=== PATIENT | female | born 1985 | race Caucasian/White ===

== ENCOUNTER 2016-07-10 14:32 | Emergency (ER) | payer MEDICAID ==
[~2016-07-10] VITALS: Ht 157.5 cm; Wt 65.9 kg
[2016-07-10] MEDS ORDERED: MYCO250C7 PO (15:09)
[2016-07-10] MEDS ORDERED: HYDR200T4 PO (15:09)
[2016-07-10] MEDS ORDERED: PRED1 PO (15:09)
[2016-07-10] MEDS ORDERED: DEXAMETHASONE SOD PHOS 4 MG/ML 5 ML VIAL IM ONE (17:00)
[2016-07-10] MEDS ORDERED: ALBUTEROL SULFATE 5 MG/ML 20 ML NEB SOLN [BULK] NEB ONE (17:00)
[2016-07-10] MEDS ORDERED: 0.9% SODIUM CHLORIDE 5 ML NEB SOLUTION NEB ONE (17:27)
[2016-07-10 19:36] VITALS: BP 141/87
== END 2016-07-10 19:39 | disposition home or self-care (01) ==
LOC: EMS 14:34
DX: J40 Bronchitis, not specified as acute or chronic (principal); J98.01 Acute bronchospasm; I10 Essential (primary) hypertension
CPT/HCPCS: 71020; 84703; 94640; 96372; 99285; J1100; J7611

== ENCOUNTER 2016-09-01 11:58 | Emergency (ER) | payer MEDICAID ==
[~2016-09-01] VITALS: Ht 160 cm; Wt 64.0 kg
[~2016-09-01 11:58] MED LIST: HYDR200T4 PO; MYCO250C7 PO; PRED1 PO
[2016-09-01] MEDS ORDERED: SODIUM CHLORIDE 0.9% 1,000 ML IV ONE (13:45)
[2016-09-01] MEDS ORDERED: MORPHINE SULFATE 4 MG/ML SYRINGE IVP ONE ×2 (13:45→16:30)
[2016-09-01] MEDS ORDERED: ONDANSETRON HCL 4 MG/2 ML VIAL IVP ONE (13:45)
[2016-09-01 14:12] LABS: BASOPHILS % (AUTO) 0.3 % (0.0-2.0); EOSINOPHILS % (AUTO) 0.3 % (1.0-6.0); HEMATOCRIT 33.5 % (36-46); LYMPHOCYTES # (AUTO) 2.7 K/uL (1.0-4.8); LYMPHOCYTES % (AUTO) 10.7 % (22.0-44.0); MEAN CORPUSCULAR HEMOGLOBIN 29.1 pg (26.0-34.0); MEAN CORPUSCULAR HGB CONC 32.8 G/dL (31.0-37.0); MEAN CORPUSCULAR VOLUME 89 fL (80-100); MONOCYTES % (AUTO) 4.1 % (2.0-9.0); NEUTROPHILS # (AUTO) 21.4 K/uL (1.8-7.7); NEUTROPHILS % (AUTO) 84.6 % (40.0-70.0); PLATELET COUNT (AUTO) 365 K/uL (150-450); RED BLOOD CELL COUNT(AUTO) 3.78 MIL/uL (4.00-5.20); RED CELL DISTRIBUTION WIDTH 13.9 % (11.5-14.5); WHITE BLOOD COUNT (AUTO) 25.3 K/uL (4.5-11.0)
[2016-09-01 14:17] LABS: ANION GAP 13 mmol/L (8-16); CALCIUM, TOTAL 9.2 mg/dL (8.8-10.5); CARBON DIOXIDE 23 mmol/L (22-29); CHLORIDE 104 mmol/L (98-107); CREATININE 1.97 mg/dL (0.60-1.30); GLOMERULAR FILTR. RATE CALC 30 mL/min (>60); POTASSIUM 3.6 mmol/L (3.5-5.1); SODIUM SERUM 140 mmol/L (136-145); UREA NITROGEN, BLOOD 40 mg/dL (7-18)
[2016-09-01 14:24] LABS: ALANINE AMINOTRANSFERASE 24 U/L (12-78); ALBUMIN 2.9 g/dL (3.4-5.0); ASPARTATE AMINOTRANSFERASE 9 U/L (15-37); BILIRUBIN,TOTAL 0.2 mg/dL (0.1-1.0); CREATINE KINASE, TOTAL 25 U/L (26-192); TOTAL PROTEIN, SERUM 6.5 g/dL (6.4-8.2)
[2016-09-01 14:31] LABS: B-TYPE NATRIURETIC PEPTIDE 139 pg/mL (0-100)
[2016-09-01 14:58] LABS: APPEARANCE,URINE CLEAR (CLEAR); GLUCOSE, URINE (UA) NEGATIVE (NEGATIVE); KETONES,URINE NEGATIVE (NEGATIVE); LEUKOCYTE ESTERASE ,URINE NEGATIVE (NEGATIVE); OCCULT BLOOD,URINE LARGE (NEGATIVE); PROTEIN,URINE SEE CONFIRM (NEGATIVE)
[2016-09-01 15:06] LABS: SULFOSALICYLIC ACID,URINE 4+ (Negative)
[2016-09-01 15:08] LABS: WBC,URINE 0-2 /HPF (0-5)
[2016-09-01 15:09] LABS: FINE GRANULAR CASTS,URINE 0-2 /LPF (None Seen); HYALINE CASTS, URINE 0-2 /LPF (None Seen); SQUAMOUS EPITHELIAL CELL,UR Few /LPF (None Seen)
[2016-09-01] MEDS ORDERED: SODIUM CHLORIDE 0.9% 100 ML ONE (15:12)
[2016-09-01] MEDS ORDERED: IOVERSOL 320 MG/ML 100 ML VIAL ONE (15:12)
[2016-09-01] MEDS ORDERED: ACETAMINOPHEN 1000 MG/ISO-OSM 100 ML IV ONE (16:30)
[2016-09-01] MEDS ORDERED: DONNATAL/LIDOCAINE/MAALOX 55 ML BOTTLE PO ONE (17:00)
[2016-09-01 18:03] VITALS: BP 134/86
== END 2016-09-01 18:25 | disposition home or self-care (01) ==
LOC: EMS 12:00
DX: R09.1 Pleurisy (principal); R07.89 Other chest pain; D72.829 Elevated white blood cell count, unspecified; K21.9 Gastro-esophageal reflux disease without esophagitis; N28.9 Disorder of kidney and ureter, unspecified; L93.0 Discoid lupus erythematosus; I10 Essential (primary) hypertension
CPT/HCPCS: 36415; 71010; 71275; 80053; 81001; 82550; 83880; 84484; 84703; 85025; 85379; 93005; 96361; 96365; 96366; 96375; 96376; 99285; J0131; J2270; J2405; J7030; J7050; Q9967; Z7610

== ENCOUNTER 2016-12-23 14:06 | Emergency (ER) | payer MEDICAID ==
[~2016-12-23] VITALS: Ht 160 cm; Wt 59.1 kg
[~2016-12-23 14:06] MED LIST changes: +ACET1TAB12 PO; +AMLO-511 PO; +BELI400V IV; +HYDR-309 PO; +LOSA25TA21 PO; +OMEP20 PO; +OS500 PO; +VITAD1000 PO
[2016-12-23] MEDS ORDERED: LOSA25TA21 PO (14:13)
[2016-12-23] MEDS ORDERED: PRED20 PO (14:53)
[2016-12-23] MEDS ORDERED: SODIUM CHLORIDE 0.9% 1,000 ML IV ONE (15:00)
[2016-12-23] MEDS ORDERED: OxyCODONE HCL/ACETAMINOPHEN 5-325 MG TABLET PO ONE (15:00)
[2016-12-23 15:42] LABS: APPEARANCE,URINE CLEAR (CLEAR); BASOPHILS % (AUTO) 0.1 % (0.0-2.0); EOSINOPHILS % (AUTO) 0.1 % (1.0-6.0); GLUCOSE, URINE (UA) NEGATIVE (NEGATIVE); HEMOGLOBIN 9.6 g/dL (12.0-16.0); KETONES,URINE NEGATIVE (NEGATIVE); LEUKOCYTE ESTERASE ,URINE NEGATIVE (NEGATIVE); LYMPHOCYTES # (AUTO) 1.2 K/uL (1.0-4.8); LYMPHOCYTES % (AUTO) 4.7 % (22.0-44.0); MEAN CORPUSCULAR VOLUME 88 fL (80-100); MONOCYTES # (AUTO) 0.5 K/uL (0.1-1.0); MONOCYTES % (AUTO) 1.8 % (2.0-9.0); OCCULT BLOOD,URINE MODERATE (NEGATIVE); PLATELET COUNT (AUTO) 331 K/uL (150-450); PROTEIN,URINE SEE CONFIRM (NEGATIVE); RED BLOOD CELL COUNT(AUTO) 3.31 MIL/uL (4.00-5.20); RED CELL DISTRIBUTION WIDTH 15.4 % (11.5-14.5); WHITE BLOOD COUNT (AUTO) 25.7 K/uL (4.5-11.0)
[2016-12-23 15:50] LABS: NEUTROPHILS % (AUTO) 93.3 % (40.0-70.0); SULFOSALICYLIC ACID,URINE 3+ (Negative)
[2016-12-23 15:51] LABS: SQUAMOUS EPITHELIAL CELL,UR Few /LPF (None Seen); WBC,URINE 0-2 /HPF (0-5)
[2016-12-23 15:58] LABS: CALCIUM, TOTAL 8.5 mg/dL (8.8-10.5); CREATININE 1.9 mg/dL (0.60-1.30); POTASSIUM 3.5 mmol/L (3.5-5.1)
[2016-12-23 16:04] LABS: ALBUMIN 3.1 g/dL (3.4-5.0); BILIRUBIN,TOTAL 0.2 mg/dL (0.1-1.0); TOTAL PROTEIN, SERUM 6.3 g/dL (6.4-8.2)
[2016-12-23 16:09] LABS: LACTIC ACID 0.3 mmol/L (0.4-2.0)
[2016-12-23] MEDS ORDERED: ALBUTEROL SULFATE 2.5 MG/0.5 ML NEB SOLUTION NEB ONE (16:45)
[2016-12-23] MEDS ORDERED: IPRATROPIUM BROMIDE 0.5 MG/2.5 ML NEB SOLUTION NEB ONE (16:45)
[2016-12-23 17:11] LABS: RBC MORPHOLOGY COMMENT NORMAL RBC MORPH
[2016-12-23 17:12] LABS: ERYTHROCYTE SEDIMENTATION RATE 30 MM/HR (0-20)
[2016-12-23 17:34] VITALS: BP 149/103
== END 2016-12-23 17:50 | disposition home or self-care (01) ==
LOC: EMS 14:08
DX: R07.89 Other chest pain (principal); M62.838 Other muscle spasm; R05 Cough; I10 Essential (primary) hypertension; F12.90 Cannabis use, unspecified, uncomplicated
CPT/HCPCS: 36415; 71020; 80053; 81001; 81025; 83605; 84484; 85025; 85651; 86140; 94640; 96360; 96361; 99285; J7030; J7613

== ENCOUNTER 2016-12-30 01:39 | Emergency (ER) | payer MEDICAID ==
[~2016-12-30] VITALS: Ht 162.6 cm; Wt 59.1 kg
[~2016-12-30 01:39] MED LIST changes: -ACET1TAB12 PO; -HYDR-309 PO; -PRED1 PO; +PRED20 PO
[2016-12-30 02:13] LABS: BASOPHILS % (AUTO) 0.3 % (0.0-2.0); EOSINOPHILS % (AUTO) 0.1 % (1.0-6.0); LYMPHOCYTES # (AUTO) 2.3 K/uL (1.0-4.8); LYMPHOCYTES % (AUTO) 10.4 % (22.0-44.0); MEAN CORPUSCULAR HEMOGLOBIN 29.3 pg (26.0-34.0); MEAN CORPUSCULAR HGB CONC 33.4 G/dL (31.0-37.0); MEAN CORPUSCULAR VOLUME 88 fL (80-100); MONOCYTES # (AUTO) 0.5 K/uL (0.1-1.0); MONOCYTES % (AUTO) 2.2 % (2.0-9.0); NEUTROPHILS # (AUTO) 19.3 K/uL (1.8-7.7); PLATELET COUNT (AUTO) 373 K/uL (150-450); RED BLOOD CELL COUNT(AUTO) 3.41 MIL/uL (4.00-5.20); RED CELL DISTRIBUTION WIDTH 15.4 % (11.5-14.5); WHITE BLOOD COUNT (AUTO) 22.2 K/uL (4.5-11.0)
[2016-12-30] MEDS ORDERED: SODIUM CHLORIDE 0.9% 1,000 ML IV ONE (02:15)
[2016-12-30] MEDS ORDERED: MORPHINE SULFATE 4 MG/ML SYRINGE IVP ONE (02:15)
[2016-12-30] MEDS ORDERED: SODIUM CHLORIDE 0.9% 500 ML IV ONE ×2 (02:15→04:30)
[2016-12-30] MEDS ORDERED: ONDANSETRON HCL 4 MG/2 ML VIAL IVP ONE (02:15)
[2016-12-30 02:22] LABS: CALCIUM, TOTAL 8.5 mg/dL (8.8-10.5); CREATININE 2.27 mg/dL (0.60-1.30); POTASSIUM 3.9 mmol/L (3.5-5.1)
[2016-12-30 02:29] LABS: BILIRUBIN,TOTAL 0.1 mg/dL (0.1-1.0)
[2016-12-30] MEDS ORDERED: IPRATROPIUM BROMIDE 0.5 MG/2.5 ML NEB SOLUTION NEB ONE (02:45)
[2016-12-30] MEDS ORDERED: ALBUTEROL SULFATE 5 MG/ML 20 ML NEB SOLN [BULK] NEB ONE (02:45)
[2016-12-30] MEDS ORDERED: 0.9% SODIUM CHLORIDE 5 ML NEB SOLUTION NEB ONE (03:18)
[2016-12-30 03:41] LABS: INFLUENZA TYPE B NEGATIVE FOR TYPE B (NEGATIVE)
[2016-12-30] MEDS ORDERED: HYDROmorphone 2 MG/ML SYRINGE IVP ONE (04:00)
[2016-12-30 05:09] VITALS: BP 135/70
[2016-12-30] MEDS ORDERED: ACETAMINOPHEN 500 MG TABLET PO ONE (05:15)
[2016-12-30] MEDS ORDERED: LEVOFLOXACIN 250 MG TABLET PO ONE (05:15)
== END 2016-12-30 05:47 | disposition home or self-care (01) ==
LOC: EMS 01:39
DX: J18.9 Pneumonia, unspecified organism (principal); J02.9 Acute pharyngitis, unspecified; I10 Essential (primary) hypertension; F12.90 Cannabis use, unspecified, uncomplicated
CPT/HCPCS: 36415; 71010; 80053; 80307; 81025; 83690; 85025; 87804; 94640; 96361; 96374; 96375; 99285; J1170; J2270; J2405; J7030; J7611

== ENCOUNTER 2017-01-03 20:23 | Emergency (ER) | payer MEDICAID ==
[~2017-01-03] VITALS: Ht 160 cm; Wt 59.0 kg
[2017-01-03 22:20] LABS: APPEARANCE,URINE CLEAR (CLEAR); GLUCOSE, URINE (UA) NEGATIVE (NEGATIVE); KETONES,URINE NEGATIVE (NEGATIVE); LEUKOCYTE ESTERASE ,URINE NEGATIVE (NEGATIVE); OCCULT BLOOD,URINE LARGE (NEGATIVE); PH,URINE 5.5 (5.0-8.0); PROTEIN,URINE SEE CONFIRM (NEGATIVE)
[2017-01-03 22:20] LABS: BASOPHILS % (AUTO) 0.2 % (0.0-2.0); EOSINOPHILS % (AUTO) 0.1 % (1.0-6.0); HEMATOCRIT 29.2 % (36-46); HEMOGLOBIN 9.7 g/dL (12.0-16.0); LYMPHOCYTES # (AUTO) 1.2 K/uL (1.0-4.8); LYMPHOCYTES % (AUTO) 10.6 % (22.0-44.0); MEAN CORPUSCULAR HEMOGLOBIN 29.1 pg (26.0-34.0); MEAN CORPUSCULAR HGB CONC 33.2 G/dL (31.0-37.0); MEAN CORPUSCULAR VOLUME 88 fL (80-100); MONOCYTES # (AUTO) 0.3 K/uL (0.1-1.0); MONOCYTES % (AUTO) 2.7 % (2.0-9.0); NEUTROPHILS % (AUTO) 86.4 % (40.0-70.0); PLATELET COUNT (AUTO) 388 K/uL (150-450); RED BLOOD CELL COUNT(AUTO) 3.33 MIL/uL (4.00-5.20); RED CELL DISTRIBUTION WIDTH 15.1 % (11.5-14.5); WHITE BLOOD COUNT (AUTO) 11.6 K/uL (4.5-11.0)
[2017-01-03 22:22] LABS: ADD UA MICROSCOPIC YES
[2017-01-03 22:24] LABS: CREATININE 2.21 mg/dL (0.60-1.30); POTASSIUM 4.2 mmol/L (3.5-5.1)
[2017-01-03 22:30] LABS: ALBUMIN 2.8 g/dL (3.4-5.0); BILIRUBIN,TOTAL 0.2 mg/dL (0.1-1.0); TOTAL PROTEIN, SERUM 6.6 g/dL (6.4-8.2)
[2017-01-03 22:31] LABS: SULFOSALICYLIC ACID,URINE 2+ (Negative)
[2017-01-03 22:33] LABS: SQUAMOUS EPITHELIAL CELL,UR Rare /LPF (None Seen)
[2017-01-03 22:44] LABS: RBC MORPHOLOGY COMMENT NORMAL RBC MORPH
[2017-01-03] MEDS ORDERED: SODIUM CHLORIDE 0.9% 1,000 ML IV ONE (23:15)
[2017-01-03] MEDS ORDERED: KETOROLAC TROMETHAMINE 30 MG/ML VIAL IVP ONE (23:45)
[2017-01-03] MEDS ORDERED: HYDROCODONE/ACETAMINOPHEN 5-325 MG TABLET PO ONE (23:45)
[2017-01-04 00:38] VITALS: BP 122/78
== END 2017-01-04 00:43 | disposition home or self-care (01) ==
LOC: EMS 20:24
DX: R10.13 Epigastric pain (principal); I10 Essential (primary) hypertension
CPT/HCPCS: 36415; 80053; 81001; 83690; 84703; 85025; 96361; 96374; 99284; J1885; J7030

== ENCOUNTER 2017-01-07 20:34 | Inpatient (IN) | payer MEDICAID ==
[~2017-01-07] VITALS: Ht 160 cm; Wt 59.6 kg
[2017-01-07] MEDS ORDERED: PERCT10 PO (20:41)
[2017-01-07] MEDS ORDERED: KETOROLAC TROMETHAMINE 30 MG/ML VIAL IVP ONE (21:15)
[2017-01-07] MEDS ORDERED: SODIUM CHLORIDE 0.9% 1,000 ML IV ONE ×2 (21:15→21:30)
[2017-01-07] MEDS ORDERED: ACETAMINOPHEN 1000 MG/ISO-OSM 100 ML IV ONE (21:15)
[2017-01-07 21:28] LABS: EOSINOPHILS % (AUTO) 0.1 % (1.0-6.0); HEMATOCRIT 29.3 % (36-46); HEMOGLOBIN 9.6 g/dL (12.0-16.0); LYMPHOCYTES # (AUTO) 0.6 K/uL (1.0-4.8); LYMPHOCYTES % (AUTO) 2.2 % (22.0-44.0); MEAN CORPUSCULAR HEMOGLOBIN 28.7 pg (26.0-34.0); MEAN CORPUSCULAR HGB CONC 32.9 G/dL (31.0-37.0); MEAN CORPUSCULAR VOLUME 87 fL (80-100); MONOCYTES # (AUTO) 0.3 K/uL (0.1-1.0); MONOCYTES % (AUTO) 1.1 % (2.0-9.0); NEUTROPHILS # (AUTO) 25.5 K/uL (1.8-7.7); NEUTROPHILS % (AUTO) 96.6 % (40.0-70.0); PLATELET COUNT (AUTO) 281 K/uL (150-450); RED BLOOD CELL COUNT(AUTO) 3.36 MIL/uL (4.00-5.20); RED CELL DISTRIBUTION WIDTH 14.8 % (11.5-14.5); WHITE BLOOD COUNT (AUTO) 26.4 K/uL (4.5-11.0)
[2017-01-07 21:39] LABS: CALCIUM, TOTAL 8.5 mg/dL (8.8-10.5); CREATININE 2.11 mg/dL (0.60-1.30); POTASSIUM 3.5 mmol/L (3.5-5.1)
[2017-01-07 21:45] LABS: BILIRUBIN,TOTAL 0.4 mg/dL (0.1-1.0); TOTAL PROTEIN, SERUM 6.4 g/dL (6.4-8.2)
[2017-01-07 21:48] LABS: LACTIC ACID 0.7 mmol/L (0.4-2.0)
[2017-01-07] MEDS ORDERED: PIPERACILLIN/TAZO 3.375 GM/D5W 50 ML IV ONE (22:00)
[2017-01-07 22:05] LABS: RBC MORPHOLOGY COMMENT ABNORMAL RBC MORPH
[2017-01-07 22:14] LABS: APPEARANCE,URINE CLOUDY (CLEAR); GLUCOSE, URINE (UA) NEGATIVE (NEGATIVE); KETONES,URINE NEGATIVE (NEGATIVE); LEUKOCYTE ESTERASE ,URINE NEGATIVE (NEGATIVE); OCCULT BLOOD,URINE LARGE (NEGATIVE); PH,URINE 5.5 (5.0-8.0); PROTEIN,URINE SEE CONFIRM (NEGATIVE)
[2017-01-07] MEDS ORDERED: ONDANSETRON HCL 4 MG/2 ML VIAL IVP PRN (22:15)
[2017-01-07] MEDS ORDERED: ACETAMINOPHEN 325 MG TABLET PO PRN (22:15)
[2017-01-07 22:30] LABS: SQUAMOUS EPITHELIAL CELL,UR Few /LPF (None Seen); SULFOSALICYLIC ACID,URINE 3+ (Negative)
[2017-01-07 22:31] LABS: RBC,URINE 26-50 /HPF (0-2)
[2017-01-07 22:55] VITALS: BP 132/81
[2017-01-07] MEDS: MORPHINE SULFATE 4 MG/ML SYRINGE IVP PRN (23:56)
[2017-01-08 04:44] VITALS: BP 121/82
[2017-01-08 07:47] VITALS: BP 134/81
[2017-01-08] MEDS: MORPHINE SULFATE 4 MG/ML SYRINGE IVP PRN ×2 (08:14→15:02)
[2017-01-08 11:12] VITALS: BP 117/75
[2017-01-08] MEDS ORDERED: ACETAMINOPHEN 325 MG TABLET PO PRN (13:15)
[2017-01-08] MEDS ORDERED: OxyCODONE HCL/ACETAMINOPHEN 10-325 MG TABLET PO PRN (13:15)
[2017-01-08] MEDS ORDERED: 0.9% SODIUM CHLORIDE 10 ML SYRINGE IVP PRN (13:15)
[2017-01-08] MEDS ORDERED: VANCOMYCIN HCL 1 GM/D5% WATER 200 ML IV ONE (14:00)
[2017-01-08] MEDS ORDERED: PIPERACILLIN/TAZO 3.375 GM/D5W 50 ML IV SCH (14:00)
[2017-01-08 14:03] LABS: CALCIUM, TOTAL 8.2 mg/dL (8.8-10.5); CREATININE 1.89 mg/dL (0.60-1.30)
[2017-01-08] MEDS: HYDROXYCHLOROQUINE SULFATE 200 MG TABLET PO SCH ×2 (14:42→20:28)
[2017-01-08] MEDS: MYCOPHENOLATE MOFETIL 250 MG CAPSULE PO SCH ×2 (14:42→20:28)
[2017-01-08] MEDS: AmLODIPine BESYLATE 5 MG TABLET PO SCH (14:43)
[2017-01-08] MEDS: OMEPRAZOLE 20 MG CAPSULE PO SCH (14:43)
[2017-01-08] MEDS: CHOLECALCIFEROL (VIT D3) 1,000 UNITS TABLET PO SCH (14:43)
[2017-01-08] MEDS: LOSARTAN POTASSIUM 25 MG TABLET PO SCH (14:44)
[2017-01-08] MEDS: CALCIUM OYSTER SHELL 500 MG TABLET PO SCH (14:44)
[2017-01-08] MEDS: PIPERACILLIN SODIUM/TAZOBACTAM 2.25 GM in DEXTROSE 5%-WATER 50 ML IV SCH ×2 (14:52→20:27)
[2017-01-08] MEDS ORDERED: VANCOMYCIN HCL 1.25 GM in DEXTROSE 5%-WATER 250 ML IV ONE (15:00)
[2017-01-08] MEDS ORDERED: SODIUM CHLORIDE 0.9% 1,000 ML IV ONE (15:46)
[2017-01-08 16:09] VITALS: BP 133/94
[2017-01-08 19:45] VITALS: BP 138/85
[2017-01-08] MEDS: MORPHINE SULFATE 2 MG/ML SYRINGE IVP PRN (19:50)
[2017-01-08] MEDS ORDERED: MethylPREDNISolone SOD SUCC 125 MG/2 ML VIAL IVP ONE (20:15)
[2017-01-08] MEDS ORDERED: PredniSONE 20 MG TABLET PO SCH (21:00)
[2017-01-08] MEDS: MethylPREDNISolone SOD SUCC 40 MG/ML VIAL IVP SCH (23:50)
[2017-01-08 23:58] VITALS: BP 117/60
[2017-01-09 05:21] VITALS: BP 100/49
[2017-01-09 06:27] LABS: CALCIUM, TOTAL 8.4 mg/dL (8.8-10.5); CREATININE 2.04 mg/dL (0.60-1.30); POTASSIUM 4.9 mmol/L (3.5-5.1)
[2017-01-09 07:45] LABS: BASOPHILS # (AUTO) 0.01 K/uL (0.00-0.20); EOSINOPHILS # (AUTO) 0.01 K/uL (0.00-0.70); EOSINOPHILS % (AUTO) 0.04 % (1.0-6.0); HEMATOCRIT 24.5 % (36-46); HEMOGLOBIN 8.1 g/dL (12.0-16.0); LYMPHOCYTES # (AUTO) 0.4 K/uL (1.0-4.8); LYMPHOCYTES % (AUTO) 1.9 % (22.0-44.0); MEAN CORPUSCULAR HEMOGLOBIN 28.9 pg (26.0-34.0); MEAN CORPUSCULAR HGB CONC 33.2 G/dL (31.0-37.0); MEAN CORPUSCULAR VOLUME 87 fL (80-100); MONOCYTES % (AUTO) 0.1 % (2.0-9.0); NEUTROPHILS # (AUTO) 20.9 K/uL (1.8-7.7); PLATELET COUNT (AUTO) 252 K/uL (150-450); RED BLOOD CELL COUNT(AUTO) 2.82 MIL/uL (4.00-5.20); RED CELL DISTRIBUTION WIDTH 15.9 % (11.5-14.5); WHITE BLOOD COUNT (AUTO) 21.4 K/uL (4.5-11.0)
[2017-01-09 07:47] LABS: NEUTROPHILS % (AUTO) 97.9 % (40.0-70.0)
[2017-01-09 07:49] LABS: PROCALCITONIN (PCT) 0.43 ng/mL (<0.50)
[2017-01-09 07:57] VITALS: BP 112/67
[2017-01-09] MEDS ORDERED: VANCOMYCIN HCL 1 GM/D5% WATER 200 ML IV SCH (08:00)
[2017-01-09] MEDS ORDERED: VANCOMYCIN HCL 1.25 GM in DEXTROSE 5%-WATER 250 ML IV SCH (08:00)
[2017-01-09] MEDS: MethylPREDNISolone SOD SUCC 40 MG/ML VIAL IVP SCH ×3 (08:33→23:23)
[2017-01-09] MEDS: MORPHINE SULFATE 2 MG/ML SYRINGE IVP PRN (08:33)
[2017-01-09] MEDS: HYDROXYCHLOROQUINE SULFATE 200 MG TABLET PO SCH ×2 (08:34→20:33)
[2017-01-09] MEDS: LOSARTAN POTASSIUM 25 MG TABLET PO SCH (08:34)
[2017-01-09] MEDS: CALCIUM OYSTER SHELL 500 MG TABLET PO SCH (08:34)
[2017-01-09] MEDS: AmLODIPine BESYLATE 5 MG TABLET PO SCH (08:34)
[2017-01-09] MEDS: OMEPRAZOLE 20 MG CAPSULE PO SCH (08:34)
[2017-01-09] MEDS: MYCOPHENOLATE MOFETIL 250 MG CAPSULE PO SCH ×2 (08:34→20:33)
[2017-01-09] MEDS: CHOLECALCIFEROL (VIT D3) 1,000 UNITS TABLET PO SCH (08:36)
[2017-01-09 09:47] LABS: ERYTHROCYTE SEDIMENTATION RATE 87 MM/HR (0-20)
[2017-01-09] MEDS ORDERED: EPOETIN ALFA 10,000 UNITS/ML VIAL SQ ONE (12:00)
[2017-01-09 12:12] VITALS: BP 117/71
[2017-01-09] MEDS ORDERED: INFLUENZA VIRUS VACCINE QVS 2017-18 (3YR+)/PF 60 MCG/0.5 ML SYRINGE IM ONE (14:45)
[2017-01-09 16:40] VITALS: BP 119/72
[2017-01-09 19:49] VITALS: BP 118/55
[2017-01-09 23:51] VITALS: BP 135/80
[2017-01-10 04:26] VITALS: BP 106/59
[2017-01-10 05:27] LABS: INFLUENZA TYPE B NEGATIVE FOR TYPE B (NEGATIVE)
[2017-01-10 07:46] LABS: CALCIUM, TOTAL 8.9 mg/dL (8.8-10.5); CREATININE 1.78 mg/dL (0.60-1.30)
[2017-01-10 07:52] VITALS: BP 129/66
[2017-01-10] MEDS: MYCOPHENOLATE MOFETIL 250 MG CAPSULE PO SCH (09:10)
[2017-01-10] MEDS: HYDROXYCHLOROQUINE SULFATE 200 MG TABLET PO SCH (09:11)
[2017-01-10] MEDS: CHOLECALCIFEROL (VIT D3) 1,000 UNITS TABLET PO SCH (09:11)
[2017-01-10] MEDS: LOSARTAN POTASSIUM 25 MG TABLET PO SCH (09:11)
[2017-01-10] MEDS: OMEPRAZOLE 20 MG CAPSULE PO SCH (09:11)
[2017-01-10] MEDS: CALCIUM OYSTER SHELL 500 MG TABLET PO SCH (09:11)
[2017-01-10] MEDS: MethylPREDNISolone SOD SUCC 40 MG/ML VIAL IVP SCH (09:13)
[2017-01-10] MEDS: MORPHINE SULFATE 4 MG/ML SYRINGE IVP PRN (09:13)
[2017-01-10 11:12] VITALS: BP 142/92
[2017-01-11] MEDS ORDERED: AmLODIPine BESYLATE 2.5 MG TABLET PO SCH (09:00)
[2017-02-05] MEDS ORDERED: BELIMUMAB IV SCH (09:00)
== END 2017-01-10 15:34 | disposition home or self-care (01) | DRG 346 ==
LOC: EMS 20:35 → UNDOADMIN 22:22 → 6N 22:22
PROVIDERS: ADMIT Family Medicine; ATTEND Family Medicine
DX: M32.9 Systemic lupus erythematosus, unspecified (principal); N17.9 Acute kidney failure, unspecified; R65.10 Systemic inflammatory response syndrome (SIRS) of non-infectious origin without acute organ dysfunction; N18.3 Chronic kidney disease, stage 3 (moderate); I12.9 Hypertensive chronic kidney disease with stage 1 through stage 4 chronic kidney disease, or unspecified chronic kidney disease; D64.9 Anemia, unspecified; E78.5 Hyperlipidemia, unspecified; G89.4 Chronic pain syndrome; M19.90 Unspecified osteoarthritis, unspecified site; T38.0X5A Adverse effect of glucocorticoids and synthetic analogues, initial encounter; Z82.61 Family history of arthritis; Z87.891 Personal history of nicotine dependence; Z91.19 Patient's noncompliance with other medical treatment and regimen; Z28.21 Immunization not carried out because of patient refusal
CPT/HCPCS: 51701; 82570; 83605; 83735; 84145; 84156; 85651; 87040; 87804; 96361; 96365; 96375; 99285; J0131; J0885; J2270; J2543; J2920; J2930; J3370; J7030; J7060; J7517

== ENCOUNTER 2017-04-06 13:29 | Emergency (ER) | payer MEDICAID ==
[~2017-04-06] VITALS: Ht 160 cm; Wt 61.4 kg
[~2017-04-06 13:29] MED LIST changes: +PERCT10 PO
[2017-04-06] MEDS ORDERED: ONDANSETRON HCL 4 MG/2 ML VIAL IVP ONE (15:00)
[2017-04-06] MEDS ORDERED: MORPHINE SULFATE 4 MG/ML SYRINGE IVP ONE (15:00)
[2017-04-06 15:08] LABS: BASOPHILS % (AUTO) 0.3 % (0.0-2.0); EOSINOPHILS % (AUTO) 0.5 % (1.0-6.0); HEMATOCRIT 33.7 % (36-46); HEMOGLOBIN 11.4 g/dL (12.0-16.0); LYMPHOCYTES # (AUTO) 1.7 K/uL (1.0-4.8); LYMPHOCYTES % (AUTO) 11.6 % (22.0-44.0); MEAN CORPUSCULAR HEMOGLOBIN 29.8 pg (26.0-34.0); MEAN CORPUSCULAR HGB CONC 33.7 G/dL (31.0-37.0); MEAN CORPUSCULAR VOLUME 88 fL (80-100); MONOCYTES # (AUTO) 0.8 K/uL (0.1-1.0); MONOCYTES % (AUTO) 5.7 % (2.0-9.0); NEUTROPHILS % (AUTO) 81.9 % (40.0-70.0); PLATELET COUNT (AUTO) 287 K/uL (150-450); RED BLOOD CELL COUNT(AUTO) 3.82 MIL/uL (4.00-5.20); RED CELL DISTRIBUTION WIDTH 13.9 % (11.5-14.5)
[2017-04-06 15:21] LABS: ANION GAP 8 mmol/L (8-16); CALCIUM, TOTAL 8.8 mg/dL (8.8-10.5); CARBON DIOXIDE 26 mmol/L (22-29); CHLORIDE 104 mmol/L (98-107); CREATININE 1.95 mg/dL (0.60-1.30); GLOMERULAR FILTR. RATE CALC 30 mL/min (>60); GLUCOSE,RANDOM 99 mg/dL (70-110); POTASSIUM 3.8 mmol/L (3.5-5.1); SODIUM SERUM 138 mmol/L (136-145); UREA NITROGEN, BLOOD 24 mg/dL (7-18)
[2017-04-06 15:28] LABS: ALANINE AMINOTRANSFERASE 14 U/L (12-78); ALBUMIN 3.2 g/dL (3.4-5.0); ALKALINE PHOSPHATASE 70 U/L (46-116); ASPARTATE AMINOTRANSFERASE 11 U/L (15-37); BILIRUBIN,TOTAL 0.3 mg/dL (0.1-1.0); CREATINE KINASE, TOTAL 34 U/L (26-192); LIPASE 144 U/L (73-393); TOTAL PROTEIN, SERUM 6.6 g/dL (6.4-8.2)
[2017-04-06 15:41] LABS: APPEARANCE,URINE CLEAR (CLEAR); BILIRUBIN,URINE NEGATIVE (NEGATIVE); GLUCOSE, URINE (UA) NEGATIVE (NEGATIVE); KETONES,URINE NEGATIVE (NEGATIVE); LEUKOCYTE ESTERASE ,URINE NEGATIVE (NEGATIVE); NITRATE,URINE NEGATIVE (NEGATIVE); PH,URINE 5.5 (5.0-8.0); PROTEIN,URINE SEE CONFIRM (NEGATIVE); UROBILINOGEN,URINE 0.2 mg/dL (<=1.0)
[2017-04-06 16:01] LABS: BACTERIA,URINE None Seen /HPF (None Seen); OCCULT BLOOD,URINE MODERATE (NEGATIVE); SULFOSALICYLIC ACID,URINE 2+ (Negative); WBC,URINE None Seen /HPF (0-5)
[2017-04-06 16:02] LABS: SQUAMOUS EPITHELIAL CELL,UR Moderate /LPF (None Seen)
[2017-04-06 17:12] VITALS: BP 158/98
== END 2017-04-06 17:29 | disposition home or self-care (01) ==
LOC: EMS 13:30
DX: R07.89 Other chest pain (principal); I10 Essential (primary) hypertension
CPT/HCPCS: 36415; 71045; 76705; 80053; 81001; 81025; 82550; 83690; 85025; 96374; 96375; 99285; J2270; J2405

== ENCOUNTER → 2017-06-26 | Emergency (ER) | payer MEDICAID ==
[~2017-06-26] VITALS: Ht 160 cm; Wt 59.0 kg
[~2017-06-26] MED LIST changes: +DiphenhydrAMINE HCL 50 MG/ML VIAL IVP ONE; +KETOROLAC TROMETHAMINE 30 MG/ML VIAL IVP ONE; +METOCLOPRAMIDE HCL 5 MG/ML 2 ML VIAL IVP ONE; +SODIUM CHLORIDE 0.9% 1,000 ML IV ONE
[2017-06-26 14:30] VITALS: BP 150/111
== END | disposition home or self-care (01) ==
LOC: EMS 11:35
DX: R51 Headache (principal); F12.10 Cannabis abuse, uncomplicated; R11.0 Nausea; I10 Essential (primary) hypertension; K21.9 Gastro-esophageal reflux disease without esophagitis
CPT/HCPCS: 70450; 81002; 81025; 96374; 96375; 99284; J1200; J1885; J2765; J7030

== ENCOUNTER 2017-07-30 13:54 | Emergency (ER) | payer MEDICAID ==
[~2017-07-30] VITALS: Ht 152.4 cm; Wt 59.1 kg
[~2017-07-30 13:54] MED LIST changes: -DiphenhydrAMINE HCL 50 MG/ML VIAL IVP ONE; -KETOROLAC TROMETHAMINE 30 MG/ML VIAL IVP ONE; -METOCLOPRAMIDE HCL 5 MG/ML 2 ML VIAL IVP ONE; -PRED20 PO; -SODIUM CHLORIDE 0.9% 1,000 ML IV ONE
[2017-07-30] MEDS ORDERED: LOPERAMIDE HCL 2 MG CAPSULE PO ONE (14:45)
[2017-07-30] MEDS ORDERED: ONDANSETRON HCL 4 MG/2 ML VIAL IVP ONE (14:45)
[2017-07-30] MEDS ORDERED: SODIUM CHLORIDE 0.9% 1,000 ML IV ONE ×2 (14:45→17:00)
[2017-07-30] MEDS ORDERED: ACETAMINOPHEN 1000 MG/ISO-OSM 100 ML IV ONE (14:45)
[2017-07-30 15:15] LABS: BASOPHILS % (AUTO) 0.5 % (0.0-2.0); EOSINOPHILS % (AUTO) 0 % (1.0-6.0); HEMATOCRIT 35.3 % (36-46); HEMOGLOBIN 11.7 g/dL (12.0-16.0); LYMPHOCYTES # (AUTO) 0.6 K/uL (1.0-4.8); LYMPHOCYTES % (AUTO) 3.2 % (22.0-44.0); MEAN CORPUSCULAR HEMOGLOBIN 28.9 pg (26.0-34.0); MEAN CORPUSCULAR HGB CONC 33.1 G/dL (31.0-37.0); MEAN CORPUSCULAR VOLUME 87 fL (80-100); MONOCYTES # (AUTO) 0.1 K/uL (0.1-1.0); MONOCYTES % (AUTO) 0.5 % (2.0-9.0); PLATELET COUNT (AUTO) 366 K/uL (150-450); RED BLOOD CELL COUNT(AUTO) 4.05 MIL/uL (4.00-5.20); RED CELL DISTRIBUTION WIDTH 13.7 % (11.5-14.5)
[2017-07-30 15:29] LABS: CALCIUM, TOTAL 9.5 mg/dL (8.8-10.5); CREATININE 2.29 mg/dL (0.60-1.30); NEUTROPHILS % (AUTO) 95.8 % (40.0-70.0); POTASSIUM 4.2 mmol/L (3.5-5.1)
[2017-07-30 15:37] LABS: ALBUMIN 3.1 g/dL (3.4-5.0); BILIRUBIN,TOTAL 0.2 mg/dL (0.1-1.0); TOTAL PROTEIN, SERUM 7.8 g/dL (6.4-8.2)
[2017-07-30 15:55] LABS: APPEARANCE,URINE CLEAR (CLEAR); BILIRUBIN,URINE NEGATIVE (NEGATIVE); GLUCOSE, URINE (UA) NEGATIVE (NEGATIVE); KETONES,URINE NEGATIVE (NEGATIVE); LEUKOCYTE ESTERASE ,URINE NEGATIVE (NEGATIVE); NITRATE,URINE NEGATIVE (NEGATIVE); OCCULT BLOOD,URINE LARGE (NEGATIVE); PH,URINE 5.5 (5.0-8.0); PROTEIN,URINE SEE CONFIRM (NEGATIVE); UROBILINOGEN,URINE 0.2 mg/dL (<=1.0)
[2017-07-30 16:26] LABS: SULFOSALICYLIC ACID,URINE 2+ (Negative)
[2017-07-30 16:27] LABS: BACTERIA,URINE Few /HPF (None Seen); SQUAMOUS EPITHELIAL CELL,UR Few /LPF (None Seen); WBC,URINE 0-2 /HPF (0-5)
[2017-07-30] MEDS ORDERED: TraMADol HCL 50 MG TABLET PO ONE (17:00)
[2017-07-30 17:38] VITALS: BP 150/99
== END 2017-07-30 19:07 | disposition home or self-care (01) ==
LOC: EMS 13:55
DX: E86.0 Dehydration (principal); D72.829 Elevated white blood cell count, unspecified; N28.9 Disorder of kidney and ureter, unspecified; M25.50 Pain in unspecified joint; K21.9 Gastro-esophageal reflux disease without esophagitis; I10 Essential (primary) hypertension; F12.90 Cannabis use, unspecified, uncomplicated
CPT/HCPCS: 36415; 80053; 81001; 84703; 85025; 96361; 96365; 96375; 99285; J0131; J2405; J7030

== ENCOUNTER 2018-03-29 18:45 | Emergency (ER) | payer MEDICAID ==
[~2018-03-29] VITALS: Ht 160 cm; Wt 58.0 kg
[~2018-03-29 18:45] MED LIST changes: -LOSA25TA21 PO; +LOSA25TA41 PO
[2018-03-29 20:31] LABS: BASOPHILS % (AUTO) 0.5 % (0.0-2.0); EOSINOPHILS % (AUTO) 1.3 % (1.0-6.0); HEMATOCRIT 32.1 % (36-46); HEMOGLOBIN 10.4 g/dL (12.0-16.0); LYMPHOCYTES # (AUTO) 2.7 K/uL (1.0-4.8); LYMPHOCYTES % (AUTO) 20.8 % (22.0-44.0); MEAN CORPUSCULAR HEMOGLOBIN 27.9 pg (26.0-34.0); MEAN CORPUSCULAR HGB CONC 32.5 G/dL (31.0-37.0); MEAN CORPUSCULAR VOLUME 86 fL (80-100); MONOCYTES # (AUTO) 0.7 K/uL (0.1-1.0); MONOCYTES % (AUTO) 5.4 % (2.0-9.0); NEUTROPHILS # (AUTO) 9.5 K/uL (1.8-7.7); PLATELET COUNT (AUTO) 380 K/uL (150-450); RED BLOOD CELL COUNT(AUTO) 3.75 MIL/uL (4.00-5.20); RED CELL DISTRIBUTION WIDTH 15.5 % (11.5-14.5)
[2018-03-29 20:35] LABS: APPEARANCE,URINE CLEAR (CLEAR); BILIRUBIN,URINE NEGATIVE (NEGATIVE); GLUCOSE, URINE (UA) NEGATIVE (NEGATIVE); KETONES,URINE NEGATIVE (NEGATIVE); LEUKOCYTE ESTERASE ,URINE NEGATIVE (NEGATIVE); NITRATE,URINE NEGATIVE (NEGATIVE); OCCULT BLOOD,URINE MODERATE (NEGATIVE); PH,URINE 5.5 (5.0-8.0); PROTEIN,URINE SEE CONFIRM (NEGATIVE); UROBILINOGEN,URINE 0.2 mg/dL (<=1.0)
[2018-03-29 20:42] LABS: ANION GAP 7 mmol/L (8-16); CALCIUM, TOTAL 7.9 mg/dL (8.8-10.5); CARBON DIOXIDE 26 mmol/L (22-29); CHLORIDE 107 mmol/L (98-107); CREATININE 2.95 mg/dL (0.60-1.30); GLOMERULAR FILTR. RATE CALC 19 mL/min (>60); GLUCOSE,RANDOM 84 mg/dL (70-110); POTASSIUM 4.5 mmol/L (3.5-5.1); SODIUM SERUM 140 mmol/L (136-145); UREA NITROGEN, BLOOD 46 mg/dL (7-18)
[2018-03-29 20:55] LABS: SULFOSALICYLIC ACID,URINE 3+ (Negative)
[2018-03-29 20:56] LABS: BACTERIA,URINE None Seen /HPF (None Seen); WBC,URINE 0-2 /HPF (0-5)
[2018-03-29 20:58] LABS: ALANINE AMINOTRANSFERASE 17 U/L (12-78); ALBUMIN 2.9 g/dL (3.4-5.0); ALKALINE PHOSPHATASE 67 U/L (46-116); ASPARTATE AMINOTRANSFERASE 10 U/L (15-37); BILIRUBIN,TOTAL 0.1 mg/dL (0.1-1.0); HCG,QUANTITATIVE < 1 mIU/mL (0-6); TOTAL PROTEIN, SERUM 6.2 g/dL (6.4-8.2)
[2018-03-29 21:26] LABS: SQUAMOUS EPITHELIAL CELL,UR Few /LPF (None Seen)
[2018-03-29] MEDS ORDERED: ALBUTEROL SULFATE HFA 90 MCG/PUFF 8 GM INHALER IH ONE (21:45)
[2018-03-29 22:48] LABS: INFLUENZA TYPE A NEGATIVE FOR TYPE A (NEGATIVE); INFLUENZA TYPE B NEGATIVE FOR TYPE B (NEGATIVE)
[2018-03-29 23:03] VITALS: BP 145/103
== END 2018-03-29 23:12 | disposition home or self-care (01) ==
LOC: EMS 18:46
DX: I10 Essential (primary) hypertension (principal); J06.9 Acute upper respiratory infection, unspecified; J34.89 Other specified disorders of nose and nasal sinuses; M32.9 Systemic lupus erythematosus, unspecified; R05 Cough; K21.9 Gastro-esophageal reflux disease without esophagitis; F12.90 Cannabis use, unspecified, uncomplicated
CPT/HCPCS: 87804; 93005; 94640; J3535

== ENCOUNTER 2018-04-10 15:23 | Emergency (ER) | payer MEDICAID ==
[~2018-04-10] VITALS: Ht 157.5 cm; Wt 56.4 kg
[2018-04-10 16:09] LABS: BASOPHILS % (AUTO) 0.3 % (0.0-2.0); HEMATOCRIT 32.9 % (36-46); HEMOGLOBIN 10.7 g/dL (12.0-16.0); LYMPHOCYTES # (AUTO) 0.6 K/uL (1.0-4.8); LYMPHOCYTES % (AUTO) 5.8 % (22.0-44.0); MEAN CORPUSCULAR HEMOGLOBIN 27.4 pg (26.0-34.0); MEAN CORPUSCULAR HGB CONC 32.3 G/dL (31.0-37.0); MEAN CORPUSCULAR VOLUME 85 fL (80-100); MONOCYTES # (AUTO) 0.2 K/uL (0.1-1.0); MONOCYTES % (AUTO) 2.1 % (2.0-9.0); NEUTROPHILS # (AUTO) 10.2 K/uL (1.8-7.7); PLATELET COUNT (AUTO) 320 K/uL (150-450); RED BLOOD CELL COUNT(AUTO) 3.88 MIL/uL (4.00-5.20); RED CELL DISTRIBUTION WIDTH 16.2 % (11.5-14.5)
[2018-04-10 16:11] LABS: NEUTROPHILS % (AUTO) 90.8 % (40.0-70.0)
[2018-04-10 16:32] LABS: ANION GAP 10 mmol/L (8-16); CALCIUM, TOTAL 8.7 mg/dL (8.8-10.5); CARBON DIOXIDE 25 mmol/L (22-29); CHLORIDE 101 mmol/L (98-107); CREATININE 2.82 mg/dL (0.60-1.30); GLOMERULAR FILTR. RATE CALC 20 mL/min (>60); GLUCOSE,RANDOM 103 mg/dL (70-110); POTASSIUM 4.1 mmol/L (3.5-5.1); SODIUM SERUM 136 mmol/L (136-145); UREA NITROGEN, BLOOD 39 mg/dL (7-18)
[2018-04-10 16:38] LABS: ALANINE AMINOTRANSFERASE 17 U/L (12-78); ALBUMIN 3.1 g/dL (3.4-5.0); ALKALINE PHOSPHATASE 95 U/L (46-116); ASPARTATE AMINOTRANSFERASE 19 U/L (15-37); BILIRUBIN,TOTAL 0.3 mg/dL (0.1-1.0); TOTAL PROTEIN, SERUM 6.5 g/dL (6.4-8.2)
[2018-04-10 16:55] LABS: HCG,QUANTITATIVE < 1 mIU/mL (0-6)
[2018-04-10] MEDS ORDERED: MORPHINE SULFATE 4 MG/ML SYRINGE IVP ONE (17:00)
[2018-04-10] MEDS ORDERED: ONDANSETRON HCL 4 MG/2 ML VIAL IVP ONE (17:00)
[2018-04-10] MEDS ORDERED: ONDANSETRON HCL 4 MG/2 ML VIAL IM ONE (18:00)
[2018-04-10] MEDS ORDERED: MORPHINE SULFATE 4 MG/ML SYRINGE IM ONE (18:00)
[2018-04-10 19:09] VITALS: BP 148/111
== END 2018-04-10 19:19 | disposition home or self-care (01) ==
LOC: EMS 16:10
DX: R07.89 Other chest pain (principal); L93.0 Discoid lupus erythematosus; I10 Essential (primary) hypertension; K21.9 Gastro-esophageal reflux disease without esophagitis; F12.90 Cannabis use, unspecified, uncomplicated
CPT/HCPCS: 36415; 71046; 80053; 84484; 84702; 85025; 93005; 96372; 99284; J2270; J2405

== ENCOUNTER 2018-06-27 14:24 | Inpatient (IN) | payer MEDICAID ==
[~2018-06-27] VITALS: Ht 172.7 cm; Wt 54.3 kg
[~2018-06-27 14:24] MED LIST changes: -AMLO-511 PO; +AMLO-512 PO; -BELI400V IV; +DOXY100C PO; +FAMO20 PO; +LABE100T8 PO; -LOSA25TA41 PO; -OS500 PO; -PERCT10 PO; +PRED10 PO; +SODI650T PO; -VITAD1000 PO
[2018-06-27 16:06] LABS: BASOPHILS % (AUTO) 0.2 % (0.0-2.0); EOSINOPHILS % (AUTO) 0.2 % (1.0-6.0); HEMATOCRIT 30.6 % (36-46); HEMOGLOBIN 9.7 g/dL (12.0-16.0); LYMPHOCYTES % (AUTO) 6.6 % (22.0-44.0); MEAN CORPUSCULAR HGB CONC 31.5 G/dL (31.0-37.0); MEAN CORPUSCULAR VOLUME 89 fL (80-100); MONOCYTES # (AUTO) 0.5 K/uL (0.1-1.0); PLATELET COUNT (AUTO) 263 K/uL (150-450); RED BLOOD CELL COUNT(AUTO) 3.45 MIL/uL (4.00-5.20); RED CELL DISTRIBUTION WIDTH 17.1 % (11.5-14.5)
[2018-06-27 16:14] LABS: ANION GAP 14 mmol/L (8-16); CALCIUM, TOTAL 9.1 mg/dL (8.8-10.5); CARBON DIOXIDE 23 mmol/L (22-29); CHLORIDE 98 mmol/L (98-107); CREATININE 4.55 mg/dL (0.60-1.30); GLOMERULAR FILTR. RATE CALC 11 mL/min (>60); GLUCOSE,RANDOM 107 mg/dL (70-110); POTASSIUM 4.9 mmol/L (3.5-5.1); SODIUM SERUM 135 mmol/L (136-145); UREA NITROGEN, BLOOD 54 mg/dL (7-18)
[2018-06-27 16:18] LABS: APPEARANCE,URINE CLEAR (CLEAR); BILIRUBIN,URINE NEGATIVE (NEGATIVE); GLUCOSE, URINE (UA) NEGATIVE (NEGATIVE); KETONES,URINE NEGATIVE (NEGATIVE); LEUKOCYTE ESTERASE ,URINE NEGATIVE (NEGATIVE); NITRATE,URINE NEGATIVE (NEGATIVE); OCCULT BLOOD,URINE TRACE (NEGATIVE); PH,URINE 5.5 (5.0-8.0); PROTEIN,URINE SEE CONFIRM (NEGATIVE); UROBILINOGEN,URINE 0.2 mg/dL (<=1.0)
[2018-06-27 16:20] LABS: ALANINE AMINOTRANSFERASE 18 U/L (12-78); ALBUMIN 3.2 g/dL (3.4-5.0); ALKALINE PHOSPHATASE 119 U/L (46-116); ASPARTATE AMINOTRANSFERASE 8 U/L (15-37); BILIRUBIN,TOTAL 0.3 mg/dL (0.1-1.0); LIPASE 93 U/L (73-393); TOTAL PROTEIN, SERUM 6.8 g/dL (6.4-8.2)
[2018-06-27 16:25] LABS: BACTERIA,URINE None Seen /HPF (None Seen); RBC,URINE 0-2 /HPF (0-2); SQUAMOUS EPITHELIAL CELL,UR Rare /LPF (None Seen); SULFOSALICYLIC ACID,URINE Trace (Negative); WBC,URINE 0-2 /HPF (0-5)
[2018-06-27 16:40] LABS: HCG,QUANTITATIVE < 1 mIU/mL (0-6)
[2018-06-27] MEDS ORDERED: MetroNIDAZOLE 500 MG/NACL 100 ML IV ONE (18:30)
[2018-06-27] MEDS ORDERED: CIPROFLOXACIN 400 MG/D5% WATER 200 ML IV ONE (18:30)
[2018-06-27] MEDS ORDERED: SODIUM CHLORIDE 0.9% 1,000 ML IV ONE ×2 (18:30→21:30)
[2018-06-27] MEDS ORDERED: 0.9% SODIUM CHLORIDE 10 ML SYRINGE IVP PRN (19:45)
[2018-06-27] MEDS ORDERED: ACETAMINOPHEN 325 MG TABLET PO PRN ×2 (19:45→21:30)
[2018-06-27] MEDS ORDERED: ONDANSETRON HCL 4 MG/2 ML VIAL IVP PRN (19:45)
[2018-06-27] MEDS ORDERED: MORPHINE SULFATE 4 MG/ML SYRINGE IVP ONE (20:45)
[2018-06-27] MEDS ORDERED: BISACODYL 10 MG RECTAL RECTAL SUPPOSITORY PR PRN (21:30)
[2018-06-27] MEDS ORDERED: HYDROmorphone 2 MG/ML SYRINGE IVP PRN (21:30)
[2018-06-27] MEDS: OxyCODONE HCL/ACETAMINOPHEN 5-325 MG TABLET PO PRN (22:06)
[2018-06-27 22:31] VITALS: BP 147/86
[2018-06-27] MEDS: ONDANSETRON HCL 4 MG/2 ML VIAL IVP PRN (23:00)
[2018-06-27] MEDS: HEPARIN SODIUM,PORCINE 5,000 UNITS/ML VIAL SQ SCH (23:00)
[2018-06-28] VITALS (7 sets, daily range): BP systolic 130–161; BP diastolic 75–97
[2018-06-28] MEDS: HYDROmorphone 2 MG/ML SYRINGE IVP PRN ×3 (03:02→20:49)
[2018-06-28 06:24] LABS: BASOPHILS % (AUTO) 0.3 % (0.0-2.0); EOSINOPHILS % (AUTO) 0.2 % (1.0-6.0); HEMATOCRIT 27.4 % (36-46); HEMOGLOBIN 8.7 g/dL (12.0-16.0); LYMPHOCYTES # (AUTO) 2.1 K/uL (1.0-4.8); MEAN CORPUSCULAR HEMOGLOBIN 28.7 pg (26.0-34.0); MEAN CORPUSCULAR HGB CONC 31.9 G/dL (31.0-37.0); MEAN CORPUSCULAR VOLUME 90 fL (80-100); MONOCYTES # (AUTO) 0.5 K/uL (0.1-1.0); MONOCYTES % (AUTO) 4.3 % (2.0-9.0); NEUTROPHILS # (AUTO) 8.5 K/uL (1.8-7.7); NEUTROPHILS % (AUTO) 76.2 % (40.0-70.0); PLATELET COUNT (AUTO) 212 K/uL (150-450); RED BLOOD CELL COUNT(AUTO) 3.04 MIL/uL (4.00-5.20); RED CELL DISTRIBUTION WIDTH 16.7 % (11.5-14.5)
[2018-06-28 06:57] LABS: ALBUMIN 2.5 g/dL (3.4-5.0); BILIRUBIN,TOTAL 0.3 mg/dL (0.1-1.0); CREATININE 4.34 mg/dL (0.60-1.30); POTASSIUM 4.9 mmol/L (3.5-5.1); TOTAL PROTEIN, SERUM 5.8 g/dL (6.4-8.2)
[2018-06-28] MEDS: HEPARIN SODIUM,PORCINE 5,000 UNITS/ML VIAL SQ SCH (08:58)
[2018-06-28] MEDS: ASPIRIN 81 MG CHEWABLE TABLET PO SCH (08:58)
[2018-06-28] MEDS: DOCUSATE SODIUM 100 MG CAPSULE PO SCH ×2 (08:58→21:00)
[2018-06-28] MEDS: HYDROXYCHLOROQUINE SULFATE 200 MG TABLET PO SCH (08:59)
[2018-06-28] MEDS ORDERED: PredniSONE 10 MG TABLET PO SCH (09:00)
[2018-06-28] MEDS ORDERED: MYCOPHENOLATE MOFETIL 250 MG CAPSULE PO SCH (09:00)
[2018-06-28] MEDS: ONDANSETRON HCL 4 MG/2 ML VIAL IVP PRN (09:10)
[2018-06-28] MEDS: FAMOTIDINE 20 MG TABLET PO SCH (09:11)
[2018-06-28] MEDS ORDERED: EPOETIN ALFA 10,000 UNITS/ML VIAL SQ SCH (11:00)
[2018-06-28 18:42] LABS: PHOSPHORUS 5.1 mg/dL (2.5-4.9)
[2018-06-28] MEDS: MYCOPHENOLATE MOFETIL 250 MG CAPSULE PO SCH (20:47)
[2018-06-28 21:09] LABS: GLUCOMETER DEV NAME(LOC) 5N.1; GLUCOSE,POINT OF CARE 79 MG/DL (70-110)
[2018-06-29 04:22] VITALS: BP 142/86
[2018-06-29 05:28] LABS: BASOPHILS % (AUTO) 1.1 % (0.0-2.0); EOSINOPHILS % (AUTO) 0.3 % (1.0-6.0); HEMATOCRIT 28.3 % (36-46); HEMOGLOBIN 9.1 g/dL (12.0-16.0); LYMPHOCYTES # (AUTO) 2.1 K/uL (1.0-4.8); LYMPHOCYTES % (AUTO) 21.7 % (22.0-44.0); MEAN CORPUSCULAR HEMOGLOBIN 28.8 pg (26.0-34.0); MEAN CORPUSCULAR HGB CONC 32.2 G/dL (31.0-37.0); MEAN CORPUSCULAR VOLUME 89 fL (80-100); MONOCYTES # (AUTO) 0.4 K/uL (0.1-1.0); MONOCYTES % (AUTO) 3.7 % (2.0-9.0); NEUTROPHILS # (AUTO) 7.2 K/uL (1.8-7.7); NEUTROPHILS % (AUTO) 73.2 % (40.0-70.0); PLATELET COUNT (AUTO) 224 K/uL (150-450); RED BLOOD CELL COUNT(AUTO) 3.17 MIL/uL (4.00-5.20); RED CELL DISTRIBUTION WIDTH 16.1 % (11.5-14.5)
[2018-06-29 05:44] LABS: CALCIUM, TOTAL 9.2 mg/dL (8.8-10.5); CREATININE 4.26 mg/dL (0.60-1.30); MAGNESIUM 2.1 mg/dL (1.80-2.40); PHOSPHORUS 5.2 mg/dL (2.5-4.9); POTASSIUM 4.3 mmol/L (3.5-5.1)
[2018-06-29 06:12] LABS: % IRON SATURATION 59.8 % (22-44)
[2018-06-29 08:03] VITALS: BP 147/95
[2018-06-29] MEDS: ASPIRIN 81 MG CHEWABLE TABLET PO SCH (08:59)
[2018-06-29] MEDS: FAMOTIDINE 20 MG TABLET PO SCH (08:59)
[2018-06-29] MEDS: MYCOPHENOLATE MOFETIL 250 MG CAPSULE PO SCH ×2 (08:59→20:01)
[2018-06-29] MEDS: DOCUSATE SODIUM 100 MG CAPSULE PO SCH ×2 (08:59→20:06)
[2018-06-29] MEDS: PredniSONE 5 MG TABLET PO SCH (08:59)
[2018-06-29] MEDS: HYDROXYCHLOROQUINE SULFATE 200 MG TABLET PO SCH (08:59)
[2018-06-29] MEDS ORDERED: EPOETIN ALFA 10,000 UNITS/ML VIAL SQ SCH (09:00)
[2018-06-29] MEDS: ONDANSETRON HCL 4 MG/2 ML VIAL IVP PRN (09:05)
[2018-06-29] MEDS: OxyCODONE HCL/ACETAMINOPHEN 5-325 MG TABLET PO PRN ×3 (09:05→20:02)
[2018-06-29] MEDS: HYDROmorphone 2 MG/ML SYRINGE IVP PRN (09:12)
[2018-06-29 11:26] VITALS: BP 149/87
[2018-06-29 15:54] VITALS: BP 148/90
[2018-06-29 19:55] VITALS: BP 153/94
[2018-06-30 00:08] VITALS: BP 151/90
[2018-06-30] MEDS: HYDROmorphone 2 MG/ML SYRINGE IVP PRN ×2 (01:08→08:34)
[2018-06-30 04:26] VITALS: BP 153/74
[2018-06-30 06:20] LABS: CALCIUM, TOTAL 9.1 mg/dL (8.8-10.5); CREATININE 4.12 mg/dL (0.60-1.30); MAGNESIUM 1.9 mg/dL (1.80-2.40); PHOSPHORUS 4.2 mg/dL (2.5-4.9); POTASSIUM 4.1 mmol/L (3.5-5.1)
[2018-06-30 07:47] VITALS: BP 148/91
[2018-06-30] MEDS: ASPIRIN 81 MG CHEWABLE TABLET PO SCH (08:33)
[2018-06-30] MEDS: HYDROXYCHLOROQUINE SULFATE 200 MG TABLET PO SCH (08:33)
[2018-06-30] MEDS: PredniSONE 5 MG TABLET PO SCH (08:33)
[2018-06-30] MEDS: DOCUSATE SODIUM 100 MG CAPSULE PO SCH (08:33)
[2018-06-30] MEDS: FAMOTIDINE 20 MG TABLET PO SCH (08:33)
[2018-06-30] MEDS: MYCOPHENOLATE MOFETIL 250 MG CAPSULE PO SCH (08:34)
[2018-06-30 11:20] VITALS: BP 141/79
== END 2018-06-30 13:15 | disposition home or self-care (01) | DRG 249 ==
LOC: EMS 14:24 → 5S 20:00
PROVIDERS: ADMIT Internal Medicine; ATTEND Internal Medicine
DX: K52.9 Noninfective gastroenteritis and colitis, unspecified (principal); I12.0 Hypertensive chronic kidney disease with stage 5 chronic kidney disease or end stage renal disease; M32.14 Glomerular disease in systemic lupus erythematosus; M32.9 Systemic lupus erythematosus, unspecified; N18.6 End stage renal disease; E44.0 Moderate protein-calorie malnutrition; D64.9 Anemia, unspecified; E78.5 Hyperlipidemia, unspecified; K21.9 Gastro-esophageal reflux disease without esophagitis; F12.90 Cannabis use, unspecified, uncomplicated; G89.29 Other chronic pain; Z79.899 Other long term (current) drug therapy; Z82.49 Family history of ischemic heart disease and other diseases of the circulatory system; Z68.1 Body mass index [BMI] 19.9 or less, adult
CPT/HCPCS: 74176; 83540; 83550; 83735; 84100; 86160; 87081; 96365; 96367; G0378; J0744; J0885; J1170; J1644; J2270; J2405; J3490; J7030; J7517

== ENCOUNTER 2018-10-09 22:34 | Emergency (ER) | payer MEDICAID ==
[~2018-10-09] VITALS: Ht 160 cm; Wt 55.5 kg
[~2018-10-09 22:34] MED LIST changes: -AMLO-512 PO; +AMLO10TA7 PO; -DOXY100C PO; -FAMO20 PO; +IRON18TA PO
[2018-10-10] MEDS: KETOROLAC TROMETHAMINE 30 MG/ML VIAL IVP ONE (00:18)
[2018-10-10] MEDS: ONDANSETRON HCL 4 MG/2 ML VIAL IVP ONE (00:18)
[2018-10-10 00:19] LABS: BASOPHILS % (AUTO) 0.5 % (0.0-2.0); EOSINOPHILS % (AUTO) 0.4 % (1.0-6.0); HEMATOCRIT 35.1 % (36-46); HEMOGLOBIN 11.1 g/dL (12.0-16.0); LYMPHOCYTES # (AUTO) 1.3 K/uL (1.0-4.8); LYMPHOCYTES % (AUTO) 12.4 % (22.0-44.0); MEAN CORPUSCULAR HEMOGLOBIN 29.1 pg (26.0-34.0); MEAN CORPUSCULAR HGB CONC 31.5 G/dL (31.0-37.0); MEAN CORPUSCULAR VOLUME 93 fL (80-100); MONOCYTES # (AUTO) 0.6 K/uL (0.1-1.0); MONOCYTES % (AUTO) 5.9 % (2.0-9.0); NEUTROPHILS # (AUTO) 8.3 K/uL (1.8-7.7); NEUTROPHILS % (AUTO) 80.8 % (40.0-70.0); PLATELET COUNT (AUTO) 296 K/uL (150-450); RED CELL DISTRIBUTION WIDTH 14.8 % (11.5-14.5)
[2018-10-10] MEDS: SODIUM CHLORIDE 0.9% 1,000 ML IV ONE (00:21)
[2018-10-10 00:27] LABS: ANION GAP 11 mmol/L (8-16); CALCIUM, TOTAL 9.2 mg/dL (8.8-10.5); CARBON DIOXIDE 24 mmol/L (22-29); CHLORIDE 100 mmol/L (98-107); CREATININE 4.41 mg/dL (0.60-1.30); GLOMERULAR FILTR. RATE CALC 12 mL/min (>60); GLUCOSE,RANDOM 98 mg/dL (70-110); SODIUM SERUM 135 mmol/L (136-145); UREA NITROGEN, BLOOD 63 mg/dL (7-18)
[2018-10-10 00:47] LABS: ALANINE AMINOTRANSFERASE 11 U/L (12-78); ALBUMIN 3.5 g/dL (3.4-5.0); ALKALINE PHOSPHATASE 59 U/L (46-116); ASPARTATE AMINOTRANSFERASE 6 U/L (15-37); BILIRUBIN,TOTAL 0.3 mg/dL (0.1-1.0); HCG,QUANTITATIVE < 1 mIU/mL (0-6); LIPASE 70 U/L (73-393); TOTAL PROTEIN, SERUM 7.4 g/dL (6.4-8.2)
[2018-10-10] MEDS: LABETALOL HCL 100 MG TABLET PO ONE (00:55)
[2018-10-10 01:01] LABS: APPEARANCE,URINE CLOUDY (CLEAR); BILIRUBIN,URINE NEGATIVE (NEGATIVE); GLUCOSE, URINE (UA) NEGATIVE (NEGATIVE); KETONES,URINE NEGATIVE (NEGATIVE); LEUKOCYTE ESTERASE ,URINE NEGATIVE (NEGATIVE); NITRATE,URINE NEGATIVE (NEGATIVE); OCCULT BLOOD,URINE LARGE (NEGATIVE); PROTEIN,URINE SEE CONFIRM (NEGATIVE); UROBILINOGEN,URINE 0.2 mg/dL (<=1.0)
[2018-10-10 01:11] LABS: BACTERIA,URINE None Seen /HPF (None Seen); RBC,URINE >100 /HPF (0-2); SQUAMOUS EPITHELIAL CELL,UR Few /LPF (None Seen); WBC,URINE 0-2 /HPF (0-5)
[2018-10-10 01:12] LABS: SULFOSALICYLIC ACID,URINE 1+ (Negative)
[2018-10-10] MEDS: HYDROCODONE/ACETAMINOPHEN 5-325 MG TABLET PO ONE (01:54)
[2018-10-10 02:15] VITALS: BP 149/81
== END 2018-10-10 02:18 | disposition home or self-care (01) ==
LOC: EMS 22:35
DX: K52.9 Noninfective gastroenteritis and colitis, unspecified (principal); M54.6 Pain in thoracic spine; I12.0 Hypertensive chronic kidney disease with stage 5 chronic kidney disease or end stage renal disease; N18.5 Chronic kidney disease, stage 5; I10 Essential (primary) hypertension; K21.9 Gastro-esophageal reflux disease without esophagitis; F12.90 Cannabis use, unspecified, uncomplicated; Z79.899 Other long term (current) drug therapy
CPT/HCPCS: 36415; 80053; 81001; 83690; 84702; 85025; 96361; 96374; 96375; 99283; J1885; J2405; J7030

== ENCOUNTER → 2018-11-08 | Outpatient (CLI) | payer MEDICAID ==
[~2018-11-08] MED LIST changes: -AMLO10TA7 PO; +CIP250 PO; +FERR325T22 PO; -IRON18TA PO; -LABE100T8 PO; +METO50TA18 PO; +METR500 PO; -PRED10 PO; +PRED5 PO
== END | disposition home or self-care (01) ==
LOC: RADPV 13:42
PROVIDERS: ATTEND Advanced Practice Midwife
DX: N83.292 Other ovarian cyst, left side (principal); N83.291 Other ovarian cyst, right side
CPT/HCPCS: 76830; 76856

== ENCOUNTER 2018-11-13 18:39 | Emergency (ER) | payer MEDICAID ==
[~2018-11-13] VITALS: Ht 160 cm; Wt 51.8 kg
[2018-11-13] MEDS ORDERED: SODIUM CHLORIDE 0.9% 1,000 ML IV ONE (19:43)
[2018-11-13] MEDS ORDERED: ONDANSETRON HCL 4 MG/2 ML VIAL IVP ONE (19:45)
[2018-11-13 20:13] LABS: BASOPHILS % (AUTO) 0.5 % (0.0-2.0); EOSINOPHILS % (AUTO) 2.1 % (1.0-6.0); HEMATOCRIT 39.4 % (36-46); HEMOGLOBIN 12.5 g/dL (12.0-16.0); LYMPHOCYTES # (AUTO) 2.1 K/uL (1.0-4.8); LYMPHOCYTES % (AUTO) 19.6 % (22.0-44.0); MEAN CORPUSCULAR HGB CONC 31.8 G/dL (31.0-37.0); MEAN CORPUSCULAR VOLUME 94 fL (80-100); MONOCYTES # (AUTO) 0.7 K/uL (0.1-1.0); MONOCYTES % (AUTO) 6.8 % (2.0-9.0); NEUTROPHILS # (AUTO) 7.7 K/uL (1.8-7.7); PLATELET COUNT (AUTO) 204 K/uL (150-450); RED BLOOD CELL COUNT(AUTO) 4.17 MIL/uL (4.00-5.20); RED CELL DISTRIBUTION WIDTH 15.5 % (11.5-14.5)
[2018-11-13 20:18] LABS: ANION GAP 12 mmol/L (8-16); CALCIUM, TOTAL 8.6 mg/dL (8.8-10.5); CARBON DIOXIDE 19 mmol/L (22-29); CHLORIDE 106 mmol/L (98-107); CREATININE 3.79 mg/dL (0.60-1.30); GLOMERULAR FILTR. RATE CALC 14 mL/min (>60); GLUCOSE,RANDOM 83 mg/dL (70-110); SODIUM SERUM 137 mmol/L (136-145); UREA NITROGEN, BLOOD 32 mg/dL (7-18)
[2018-11-13 20:31] LABS: ALANINE AMINOTRANSFERASE 11 U/L (12-78); ALBUMIN 3.8 g/dL (3.4-5.0); ALKALINE PHOSPHATASE 34 U/L (46-116); ASPARTATE AMINOTRANSFERASE 9 U/L (15-37); BILIRUBIN,TOTAL 0.4 mg/dL (0.1-1.0); HCG,QUANTITATIVE < 1 mIU/mL (0-6); LIPASE 179 U/L (73-393); TOTAL PROTEIN, SERUM 6.7 g/dL (6.4-8.2)
[2018-11-13] MEDS ORDERED: SODIUM CHLORIDE 0.9% 500 ML IV ONE (21:15)
[2018-11-13 22:26] LABS: APPEARANCE,URINE CLEAR (CLEAR); BILIRUBIN,URINE NEGATIVE (NEGATIVE); GLUCOSE, URINE (UA) NEGATIVE (NEGATIVE); KETONES,URINE NEGATIVE (NEGATIVE); LEUKOCYTE ESTERASE ,URINE NEGATIVE (NEGATIVE); NITRATE,URINE NEGATIVE (NEGATIVE); OCCULT BLOOD,URINE LARGE (NEGATIVE); PROTEIN,URINE POS 1+ (NEGATIVE); UROBILINOGEN,URINE 0.2 mg/dL (<=1.0)
[2018-11-13 22:30] LABS: AMPHET/METH SCREEN,URINE NEGATIVE (NEGATIVE); BARBITURATE SCREEN, URINE NEGATIVE (NEGATIVE); BENZODIAZEPINES SCREEN,URINE NEGATIVE (NEGATIVE); CANNABINOID SCREEN,URINE NEGATIVE (NEGATIVE); COCAINE SCREEN,URINE NEGATIVE (NEGATIVE); METHADONE SCREEN, URINE NEGATIVE (NEGATIVE); OPIATE SCREEN,URINE NEGATIVE (NEGATIVE)
[2018-11-13 22:34] LABS: PHENCYCLIDINE SCREEN,URINE NEGATIVE (NEGATIVE)
[2018-11-13 22:44] LABS: BACTERIA,URINE Rare /HPF (None Seen); WBC,URINE 0-2 /HPF (0-5)
[2018-11-13 22:45] LABS: SQUAMOUS EPITHELIAL CELL,UR Few /LPF (None Seen)
[2018-11-13] MEDS ORDERED: LOPERAMIDE HCL 2 MG CAPSULE PO ONE (22:45)
[2018-11-13 23:00] VITALS: BP 145/87
== END 2018-11-13 23:10 | disposition home or self-care (01) ==
LOC: EMS 18:44
DX: R10.84 Generalized abdominal pain (principal); R11.2 Nausea with vomiting, unspecified; R19.7 Diarrhea, unspecified; M32.9 Systemic lupus erythematosus, unspecified; I12.9 Hypertensive chronic kidney disease with stage 1 through stage 4 chronic kidney disease, or unspecified chronic kidney disease; N18.9 Chronic kidney disease, unspecified; K21.9 Gastro-esophageal reflux disease without esophagitis; F12.90 Cannabis use, unspecified, uncomplicated; Z79.899 Other long term (current) drug therapy
CPT/HCPCS: 36415; 74176; 80053; 80307; 81001; 83690; 84702; 85025; 96361; 96374; 99284; J2405; J7030